=== PATIENT | female | born 1975 | race Two or more races ===

== ENCOUNTER 2016-08-30 23:33 | Emergency (ER) | payer SELFPAY ==
[~2016-08-30] VITALS: Ht 152.4 cm; Wt 62.6 kg
[~2016-08-30 23:33] MED LIST: METR500T PO
[2016-08-31 00:12] LABS: BILIRUBIN,URINE NEGATIVE (NEG); GLUCOSE,URINE NEGATIVE (NEG); NITRITE,URINE NEGATIVE (NEG); PH,URINE 7.5; PROTEIN,URINE NEGATIVE (NEG-TRACE); UROBILINOGEN,URINE 0.2 mg/dL (0.2 mg/dL)
[2016-08-31] MEDS ORDERED: IV NORMAL SALINE 1000ML BAG 1,000 ML IV SCH (00:15)
[2016-08-31 00:18] LABS: BACTERIA,URINE FEW /HPF (0-FEW); RBC,URINE OCC /HPF (0-2); SQUAMOUS EPITHELIAL CELL,UR MOD /LPF
--- NOTE | 2016-08-31 00:22 | PHYS DOC ---
Past Medical History Past Medical History: No Pertinent History Past Surgical History: Appendectomy, Cholecystectomy Alcohol Use: None Drug Use: None Adult General Chief Complaint Chief Complaint: HEADACHE HPI HPI Patient is a 41 year old female who presents with complaint of dizziness, blurry vision, and extremity numbness. Patient states that 2 days ago she had a bad headache that lasted until this morning. Patient states that after resolution of her headache she started noticing numbness and tingling in her left upper extremity and her bilateral lower extremities. Patient also states that she has had blurring of vision and decreased energy during this time. Patient is not having any pain currently. Patient states that her symptoms do worsen when she tries to get up and move. Patient denies any known health problems and is not currently on any medications. Patient denies any recent illnesses. Patient has not taken any medications to help with her symptoms. Review of Systems Review of Systems Constitutional: Fatigue, dizziness, Denies fever or chills [] Eyes: Denies change in visual acuity, redness, or eye pain [] HENT: Denies nasal congestion or sore throat [] Respiratory: Denies cough or shortness of breath [] Cardiovascular: Denies chest pain or edema [] GI: Denies abdominal pain, nausea, vomiting, bloody stools or diarrhea [] : Denies dysuria or hematuria [] Musculoskeletal: Denies back pain or joint pain [] Integument: Denies rash or skin lesions [] Neurologic: Headache currently resolved, tingling in left upper extremity and bilateral lower extremities [] Endocrine: Denies polyuria or polydipsia [] Current Medications Current Medications Current Medications Medications (Trade) Dose Ordered Sig/Priyank Start Time Stop Time Status Last Admin Dose Admin Sodium Chloride (Iv Sodium Chloride 0.9% 1000ml Bag) 1,000 ml @ 1,000 mls/hr Q1H 08/31/16 00:15 08/31/16 01:14 DC 08/31/16 00:33 1,000 MLS/HR Allergies Allergies Allergies Coded Allergies Type Severity Reaction Last Updated Verified Penicillins Allergy Intermediate 02/07/16 Yes Physical Exam Physical Exam Constitutional: Alert, afebrile, no acute distress. [] HENT: Normocephalic, atraumatic, bilateral external ears normal, oropharynx moist, no oral exudates, nose normal. [] Eyes: PERRLA, EOMI, conjunctiva normal, no discharge. [] Neck: Normal range of motion, no tenderness, supple, no stridor. [] Cardiovascular:Heart rate regular rhythm, no murmur [] Lungs & Thorax: Bilateral breath sounds clear to auscultation [] Abdomen: Bowel sounds normal, soft, no tenderness, no masses, no pulsatile masses. [] Skin: Warm, dry, no erythema, no rash. [] Back: No tenderness, no CVA tenderness. [] Extremities: No tenderness, no cyanosis, no clubbing, ROM intact, no edema. [] Neurologic: Alert and oriented X 3, normal motor function, normal sensory function, no focal deficits noted. [] Current Patient Data Vital Signs Vital Signs Date Time Temp Pulse Resp B/P Pulse Ox O2 Delivery O2 Flow Rate FiO2 08/30/16 23:50 98.6 93 20 135/88 100 Room Air 98.6 Lab Values Laboratory Tests Test 08/30/16 23:03 08/31/16 00:01 08/31/16 00:22 POC Urine HCG, Qualitative Hcg negative (Negative) Urine Collection Type Unknown Urine Color Yellow Urine Clarity Clear Urine pH 7.5 Urine Specific [place] 1.010 Urine Protein Negativemg/dL (NEG-TRACE) Urine Glucose (UA) Negativemg/dL (NEG) Urine Ketones (Stick) Negativemg/dL (NEG) Urine Blood Negative (NEG) Urine Nitrite Negative (NEG) Urine Bilirubin Negative (NEG) Urine Urobilinogen Dipstick 0.2mg/dL (0.2 mg/dL) Urine Leukocyte Esterase Small (NEG) Urine RBC Occ/HPF (0-2) Urine WBC 5-10/HPF (0-4) Urine Squamous Epithelial Cells Mod/LPF Urine Bacteria Few/HPF (0-FEW) Urine Mucus Slight/LPF White Blood Count 6.7x10^3/uL (4.0-11.0) Red Blood Count 4.94x10^6/uL (3.50-5.40) Hemoglobin 13.3g/dL (12.0-15.5) Hematocrit 39.8% (36.0-47.0) Mean Corpuscular Volume 81fL (79-100) Mean Corpuscular Hemoglobin 27pg (25-35) Mean Corpuscular Hemoglobin Concent 33g/dL (31-37) Red Cell Distribution Width 14.9% (11.5-14.5) H Platelet Count 276x10^3/uL (140-400) Neutrophils (%) (Auto) 56% (31-73) Lymphocytes (%) (Auto) 36% (24-48) Monocytes (%) (Auto) 6% (0-9) Eosinophils (%) (Auto) 2% (0-3) Basophils (%) (Auto) 1% (0-3) Neutrophils # (Auto) 3.7x10^3uL (1.8-7.7) Lymphocytes # (Auto) 2.4x10^3/uL (1.0-4.8) Monocytes # (Auto) 0.4x10^3/uL (0.0-1.1) Eosinophils # (Auto) 0.1x10^3/uL (0.0-0.7) Basophils # (Auto) 0.0x10^3/uL (0.0-0.2) Sodium Level 139mmol/L (136-145) Potassium Level 3.4mmol/L (3.5-5.1) L Chloride Level 102mmol/L (98-107) Carbon Dioxide Level 27mmol/L (21-32) Anion Gap 10 (6-14) Blood Urea Nitrogen 14mg/dL (7-20) Creatinine 0.6mg/dL (0.6-1.0) Estimated GFR (Cockcroft-Gault) 111.3 BUN/Creatinine Ratio 23 (6-20) H Glucose Level 101mg/dL (70-99) H Calcium Level 9.0mg/dL (8.5-10.1) Magnesium Level 2.2mg/dL (1.8-2.4) Total Bilirubin 0.5mg/dL (0.2-1.0) Aspartate Amino Transferase (AST) 32U/L (15-37) Alanine Aminotransferase (ALT) 86U/L (14-59) H Alkaline Phosphatase 73U/L (46-116) Total Protein 8.0g/dL (6.4-8.2) Albumin 3.8g/dL (3.4-5.0) Albumin/Globulin Ratio 0.9 (1.0-1.7) L Laboratory Tests 08/31/16 00:22 Laboratory Tests 08/31/16 00:22 EKG EKG Interpreted by me: Heart rate 80, sinus rhythm, normal intervals, normal axis, no acute ST/T-wave abnormalities present [] Radiology/Procedures Radiology/Procedures [facility] [address] [place] [address] IMAGING REPORT Signed PATIENT: DANDRE VAIL ACCOUNT: [id number] : 1975 LOCATION: ER AGE: 41 SEX: F EXAM STATUS: REG ER ORD. PHYSICIAN: RODRIGUEZ POLO MD REASON: headache x 2 days PROCEDURE: HEAD WO CONTRAST Examination: CT head without contrast. History: History of headache for 2 days. COMPARISON None available. TECHNIQUE Axial images of the head were performed without contrast. Exposure: One or more of the following dose reduction technique were utilized for this examination: 1. Automated exposure control. 2.Adjustment of MA and /or KV according to patient size. 3. Use of iterative reconstruction technique. Findings: There is no evidence of midline shift. The visualized mc-white matter differentiation is maintained. There is a 4 millimeter hyperdensity with a tiny calcification identified in the region of the left sylvian fissure identified. The mc-white matter differentiation is maintained. Visualized lateral ventricles , 3rd ventricle and 4th ventricle appropriate for age. There is no acute intracranial bleed or extra-axial fluid collection identified . basal cisterns are not effaced. The visualized paranasal sinuses, mastoid air cells are clear. IMPRESSION Tiny 4 millimeter hyperdensity identified in the left sylvian fissure region, best visualized on series 2 image #12 containing tiny punctate calcification could be secondary to stigmata of old infection, nonspecific calcification, or aneurysm or tiny cavernous hemangioma. No acute intracranial bleed identified. Electronically signed by: Brayan Juarez (Aug 31, 2016 01:08:50) DICTATED and SIGNED BY: BRAYAN JUAREZ MD DATE: 08/31/16 010 CC: RODRIGUEZ POLO MD; NO PCP ~ [] Course & Med Decision Making Course & Med Decision Making Pertinent Labs and Imaging studies reviewed. (See chart for details) The patient's neurologic exam was normal. Patient's visual acuity was reviewed and appears within normal limits. Patient shows no other significant abnormalities on the exam. I have low suspicion for stroke in this patient. The patient's symptoms are likely consistent with a typical migraine. At this time the patient will be continued on daily aspirin with referral to Dr. Allen of neurology in one to 2 weeks. Advised return emergency department for any worsening symptoms. Patient voiced understanding and in agreement with treatment plan. Dragon Disclaimer Dragon Disclaimer This electronic medical record was generated, in whole or in part, using a voice recognition dictation system. Departure Departure Impression: Primary Impression: Headache Additional Impression: Dizziness Disposition: HOME, SELF-CARE Condition: IMPROVED Referrals: NO PCP (PCP) JOHNNA ALLEN MD Patient Instructions: General Headache Without Cause Additional Instructions: Follow-up with Dr. Allen in one to 2 weeks. Be sure to continue on 81 mg baby aspirin daily. Return to the emergency department for any worsening symptoms. Scripts Aspirin (Aspir 81)81 Mg Tablet.dr1 Tab PO DAILY #30 TAB Ref 0 Prov:RODRIGUEZ POLO MD 08/31/16 Problem Qualifiers Primary Impression: Headache Headache type: unspecified Headache chronicity pattern: episodic headache Intractability: not intractable Qualified Code: R51 - Headache RODRIGUEZ POLO MD Aug 31, 2016 00:22
[2016-08-31 00:36] LABS: BASO % 1 % (0-3); EOS % 2 % (0-3); HEMATOCRIT 39.8 % (36.0-47.0); HEMOGLOBIN 13.3 g/dL (12.0-15.5); LYMPH # 2.4 x10^3/uL (1.0-4.8); LYMPH % 36 % (24-48); MEAN CORPUSCULAR HEMOGLOBIN 27 pg (25-35); MEAN CORPUSCULAR HGB CONC 33 g/dL (31-37); MEAN CORPUSCULAR VOLUME 81 fL (79-100); MONO % 6 % (0-9); NEUT % 56 % (31-73); PLATELET COUNT 276 x10^3/uL (140-400); RED BLOOD COUNT 4.94 x10^6/uL (3.50-5.40); RED CELL DISTRIBUTION WIDTH 14.9 % (11.5-14.5); WHITE BLOOD COUNT 6.7 x10^3/uL (4.0-11.0)
[2016-08-31 00:47] LABS: CREATININE 0.6 mg/dL (0.6-1.0); GFR 111.3; POTASSIUM 3.4 mmol/L (3.5-5.1)
[2016-08-31 00:52] LABS: ALBUMIN 3.8 g/dL (3.4-5.0); ALBUMIN/GLOBULIN RATIO 0.9 (1.0-1.7); MAGNESIUM 2.2 mg/dL (1.8-2.4); TOTAL BILIRUBIN 0.5 mg/dL (0.2-1.0)
--- NOTE | 2016-08-31 01:11 | RAD ---
Examination: CT head without contrast. History: History of headache for 2 days. COMPARISON None available. TECHNIQUE Axial images of the head were performed without contrast. Exposure: One or more of the following dose reduction technique were utilized for this examination: 1. Automated exposure control. 2.Adjustment of MA and /or KV according to patient size. 3. Use of iterative reconstruction technique. Findings: There is no evidence of midline shift. The visualized mc-white matter differentiation is maintained. There is a 4 millimeter hyperdensity with a tiny calcification identified in the region of the left sylvian fissure identified. The mc-white matter differentiation is maintained. Visualized lateral ventricles , 3rd ventricle and 4th ventricle appropriate for age. There is no acute intracranial bleed or extra-axial fluid collection identified . basal cisterns are not effaced. The visualized paranasal sinuses, mastoid air cells are clear. IMPRESSION Tiny 4 millimeter hyperdensity identified in the left sylvian fissure region, best visualized on series 2 image #12 containing tiny punctate calcification could be secondary to stigmata of old infection, nonspecific calcification, or aneurysm or tiny cavernous hemangioma. No acute intracranial bleed identified. Electronically signed by: Brayan Juarez (Aug 31, 2016 01:08:50)
[2016-08-31] MEDS ORDERED: ASPI-482 PO (01:24)
[2016-08-31 01:30] VITALS: BP 127/74
--- NOTE | 2016-08-31 11:28 | EKG ---
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
== END 2016-08-31 01:46 | disposition home or self-care (01) ==
LOC: ER 23:33
DX: R51 Headache (principal); R42 Dizziness and giddiness; Z88.0 Allergy status to penicillin
CPT/HCPCS: 36415; 70450; 80053; 81001; 81025; 83735; 85027; 87086; 93005; 96360; 99285; J7030

== ENCOUNTER 2019-03-04 22:49 | Emergency (ER) | payer SELFPAY ==
[~2019-03-04] VITALS: Ht 144.8 cm; Wt 62.6 kg
[~2019-03-04 22:49] MED LIST changes: +ASPI-482 PO
[2019-03-05] MEDS ORDERED: CEPH-264 PO (00:18)
[2019-03-05] MEDS ORDERED: HYDR-3164 PO (00:18)
--- NOTE | 2019-03-05 00:18 | PHYS DOC ---
Past Medical History Past Medical History: Other Additional Past Medical Histor: lump in right breast Past Surgical History: No Surgical History Alcohol Use: None Adult General Chief Complaint Chief Complaint: BREAST PROBLEM HPI HPI Patient is a 43 year old Albanian speaking female who presents with complaining of breast pain. Patient's sister is translating. Patient states she had an abnormal mammogram about 1 month ago with a lump in her primary and had ultrasound and was told she needs to have another mammogram but because of insurance problem cannot have another one until next month. Patient complaining of bilateral breast pain that getting worse in the right side gradually and rated her pain 10 over 10 and asking for checking her breasts regarding a lump in her breast was told at [facility] in [place]. Patient denies drainage of report, history of breast cancer in family, previous abnormal mammogram. Patient had 5 without breast-feeding. Review of Systems Review of Systems Constitutional: Denies fever or chills [] Eyes: Denies change in visual acuity, redness, or eye pain [] HENT: Denies nasal congestion or sore throat [] Respiratory: Denies cough or shortness of breath [] Cardiovascular: No additional information not addressed in HPI [] GI: Denies abdominal pain, nausea, vomiting, bloody stools or diarrhea [] : Denies dysuria or hematuria [] Musculoskeletal: Denies back pain or joint pain [] Integument: Denies rash or skin lesions [] Neurologic: Denies headache, focal weakness or sensory changes [] Endocrine: Denies polyuria or polydipsia [] All other systems were reviewed and found to be within normal limits, except as documented in this note. Current Medications Current Medications Current Medications Medications (Trade) Dose Ordered Sig/Priyank Start Time Stop Time Status Last Admin Dose Admin Acetaminophen/ Hydrocodone Bitart (Lortab 5/325) 1 tab 1X ONCE 03/05/19 00:30 03/05/19 00:31 Allergies Allergies Allergies Coded Allergies Type Severity Reaction Last Updated Verified Penicillins Allergy Intermediate 03/05/19 Yes Physical Exam Physical Exam Constitutional: Well developed, well nourished, mild distress, non-toxic appearance. [] HENT: Normocephalic, atraumatic. Eyes: PERRLA, EOMI, conjunctiva normal, no discharge. [] Neck: Normal range of motion, no tenderness, supple, no stridor. [] Cardiovascular:Heart rate regular rhythm, no murmur [] Lungs & Thorax: Bilateral breath sounds clear to auscultation [] Breast exam: Normal inspection, nontender flexion or change of color of the skin, no palpable mass in bilateral breasts. Tenderness of right breast, no axillary lymphadenopathy. Neurologic: Alert and oriented X 3, no focal deficits noted. [] Psychologic: Affect anxious, judgement normal, mood normal. [] Current Patient Data Vital Signs Vital Signs Date Time Temp Pulse Resp B/P (MAP) Pulse Ox O2 Delivery O2 Flow Rate FiO2 03/04/19 23:42 97.9 69 16 116/65 (82) 98 Room Air 97.9 EKG EKG [] Radiology/Procedures Radiology/Procedures [] Course & Med Decision Making Course & Med Decision Making Evaluation of patient in ER showed 43-year-old male patient had abnormal mammogram and ultrasound in another place and requesting evaluation of her breast because of the pain. Patient did not have palpated tenderness and was told is to follow-up with her outpatient appointment for evaluation. Patient treated with [place] in ER and plan to discharge home with diagnosis of mastalgi. Dragon Disclaimer Dragon Disclaimer This electronic medical record was generated, in whole or in part, using a voice recognition dictation system. Departure Departure Impression: Primary Impression: Mastalgia in female Additional Impression: Anxiety about health Disposition: 01 HOME, SELF-CARE (at 00 20) Condition: STABLE Referrals: NO PCP (PCP) Patient Instructions: Breast Cyst, Breast Tenderness, Mastitis Additional Instructions: Drink plenty of liquids Follow-up with your primary care physician in 3-5 days Return to ER if not getting better Apply warm compress on your breast Scripts Hydrocodone/Apap 5-325 (NORCO 5-325 TABLET) 1 Each Tablet 1 TAB PO PRN Q6HRS PRN for PAIN, #10 TAB 0 Refills Prov: JENNIFER PRATT MD 03/05/19 Cephalexin (KEFLEX) 500 Mg Capsule 2 CAP PO Q12HR, #28 CAP Prov: JENNIFER PRATT MD 03/05/19 Problem Qualifiers JENNIFER PRATT MD Mar 05, 2019 00:18
[2019-03-05 00:28] VITALS: BP 110/68
[2019-03-05] MEDS ORDERED: HYDROcodone/APAP 5/325MG 1 TAB TABLET PO ONE (00:30)
== END 2019-03-05 00:40 | disposition home or self-care (01) ==
LOC: MERGE 22:49 → ER 22:49
DX: N64.4 Mastodynia (principal); F41.9 Anxiety disorder, unspecified; Z88.0 Allergy status to penicillin
CPT/HCPCS: 99283

== ENCOUNTER → 2021-11-02 | Emergency (ER) | payer SELFPAY ==
[~2021-11-02] VITALS: Ht 149.9 cm; Wt 61.0 kg
[~2021-11-02] MED LIST changes: +ACETAMINOPHEN 500 MG TABLET PO ONE; +CEPH-264 PO; +HYDR-2761 PO; +HYDR-3164 PO; +HYDROcodone/APAP 5/325MG 1 TAB TABLET PO ONE; +HYDROmorphone 2 MG/ML INJ. IVP ONE; +IV NORMAL SALINE 1000ML BAG 1,000 ML IV ONE; +LEVO750T5 PO; +LIDO:MAALOX 1:1 20 ML SINGLE DOSE. SWSW ONE; +OMEP20TA63 PO; +ONDA4TAB12 PO; +ONDANSETRON PF 4 MG/2 ML VIAL. IVP ONE
--- NOTE | 2021-11-02 06:12 | PHYS DOC ---
Past Medical History Past Medical History: Other Additional Past Medical Histor: lump in right breast Past Surgical History: No Surgical History Smoking Status: Never Smoker Alcohol Use: None Drug Use: None Adult General Chief Complaint Chief Complaint: ABDOMINAL PAIN HPI HPI Patient is a 46 year old female presenting to the emergency department for evaluation of epigastric abdominal pain is been going on for approximately 4 days. She says that the pain is constant and it is a sharp stabbing pain that does not radiate. She says that the pain is constant and nothing makes it better or worse. She has a fever here and she has had dysuria and nausea but no vomiting diarrhea constipation vaginal bleeding vaginal discharge. She says she has had an appendectomy and cholecystectomy. She denies headache neck stiffness cough rash. She is in no acute distress. Review of Systems Review of Systems Constitutional: + fever. No chills [] Eyes: Denies change in visual acuity, redness, or eye pain [] HENT: Denies nasal congestion or sore throat [] Respiratory: Denies cough or shortness of breath [] Cardiovascular: No additional information not addressed in HPI [] GI: + abdominal pain, nausea. No vomiting, bloody stools or diarrhea [] : Denies dysuria or hematuria [] Musculoskeletal: Denies back pain or joint pain [] Integument: Denies rash or skin lesions [] Neurologic: Denies headache, focal weakness or sensory changes [] All other systems were reviewed and found to be within normal limits, except as documented in this note. Current Medications Current Medications Current Medications Medications (Trade) Dose Ordered Sig/[facility] Start Time Stop Time Status Last Admin Dose Admin Acetaminophen (Tylenol) 1,000 mg 1X ONCE 11/02/21 06:15 11/02/21 06:16 DC 11/02/21 06:34 1,000 MG Hydromorphone HCl (Dilaudid) 1 mg 1X ONCE 11/02/21 07:45 11/02/21 07:46 DC 11/02/21 07:55 1 MG Morphine Sulfate (Morphine Sulfate) 4 mg 1X PRN 11/02/21 06:15 11/02/21 06:49 4 MG Multi-Ingredient Mouthwash/Gargle (Gi Cocktail) 20 ml 1X ONCE 11/02/21 06:15 11/02/21 06:16 DC 11/02/21 06:35 20 ML Ondansetron HCl (Zofran) 4 mg 1X ONCE 11/02/21 06:15 11/02/21 06:16 DC 11/02/21 06:49 4 MG Sodium Chloride 1,000 ml @ 1,000 mls/hr 1X ONCE 11/02/21 06:15 11/02/21 07:14 DC 11/02/21 06:15 1,000 MLS/HR Allergies Allergies Allergies Coded Allergies Type Severity Reaction Last Updated Verified Penicillins Allergy Intermediate 11/02/21 Yes Physical Exam Physical Exam Constitutional: Well developed, well nourished, no acute distress, non-toxic appearance. [] HENT: Normocephalic, atraumatic, bilateral external ears normal, oropharynx moist, no oral exudates, nose normal. [] Eyes: PERRLA, EOMI, conjunctiva normal, no discharge. [] Neck: Normal range of motion, no tenderness, supple, no stridor. [] Cardiovascular:Heart rate regular rhythm, no murmur [] Lungs & Thorax: Bilateral breath sounds clear to auscultation [] Abdomen: Bowel sounds normal, soft, + epigastric ttp. No rebound or guarding. Skin: Warm, dry, no erythema, no rash. [] Back: No tenderness, no CVA tenderness. [] Extremities: No tenderness, no cyanosis, no clubbing, ROM intact, no edema. [] Neurologic: Alert and oriented X 3, normal motor function, normal sensory function, no focal deficits noted. [] Current Patient Data Vital Signs Vital Signs Date Time Temp Pulse Resp B/P (MAP) Pulse Ox O2 Delivery O2 Flow Rate FiO2 11/02/21 09:37 84 16 112/59 (76) 98 Room Air 11/02/21 06:05 101.1 101.1 Lab Values Laboratory Tests Test 11/02/21 06:22 11/02/21 06:46 11/02/21 07:40 11/02/21 09:30 Influenza Type A Antigen Negative (NEGATIVE) Influenza Type B Antigen Negative (NEGATIVE) SARS-CoV-2 Antigen (Rapid) Negative (NEGATIVE) White Blood Count 6.8 x10^3/uL (4.0-11.0) Red Blood Count 4.96 x10^6/uL (3.50-5.40) Hemoglobin 13.5 g/dL (12.0-15.5) Hematocrit 40.0 % (36.0-47.0) Mean Corpuscular Volume 81 fL (79-100) Mean Corpuscular Hemoglobin 27 pg (25-35) Mean Corpuscular Hemoglobin Concent 34 g/dL (31-37) Red Cell Distribution Width 14.5 % (11.5-14.5) Platelet Count 313 x10^3/uL (140-400) Neutrophils (%) (Auto) 80 % (31-73) H Lymphocytes (%) (Auto) 11 % (24-48) L Monocytes (%) (Auto) 7 % (0-9) Eosinophils (%) (Auto) 1 % (0-3) Basophils (%) (Auto) 1 % (0-3) Neutrophils # (Auto) 5.4 x10^3/uL (1.8-7.7) Lymphocytes # (Auto) 0.8 x10^3/uL (1.0-4.8) L Monocytes # (Auto) 0.5 x10^3/uL (0.0-1.1) Eosinophils # (Auto) 0.0 x10^3/uL (0.0-0.7) Basophils # (Auto) 0.0 x10^3/uL (0.0-0.2) Sodium Level 139 mmol/L (136-145) Potassium Level 3.8 mmol/L (3.5-5.1) Chloride Level 107 mmol/L (98-107) Carbon Dioxide Level 25 mmol/L (21-32) Anion Gap 7 (6-14) Blood Urea Nitrogen 8 mg/dL (7-20) Creatinine 0.6 mg/dL (0.6-1.0) Estimated GFR (Cockcroft-Gault) 108.6 BUN/Creatinine Ratio 13 (6-20) Glucose Level 110 mg/dL (70-99) H Calcium Level 8.1 mg/dL (8.5-10.1) L Total Bilirubin 0.9 mg/dL (0.2-1.0) Aspartate Amino Transferase (AST) 38 U/L (15-37) H Alanine Aminotransferase (ALT) 47 U/L (14-59) Alkaline Phosphatase 69 U/L (46-116) Troponin I High Sensitivity < 4 ng/L (4-50) L Total Protein 7.1 g/dL (6.4-8.2) Albumin 3.4 g/dL (3.4-5.0) Albumin/Globulin Ratio 0.9 (1.0-1.7) L Lipase 65 U/L (73-393) L Urine Collection Type Unknown Urine Color (Auto) Yellow Urine Turbidity Hazy Urine pH (Auto) 7.5 (<5.0-8.0) Urine Specific [place] 1.021 (1.000-1.030) Urine Protein (Auto) Negative mg/dL (Negative) Urine Glucose (Auto)(UA) Negative mg/dL (Negative) Urine Ketones (Auto) Negative mg/dL (Negative) Urine Blood (Auto) Large (Negative) Urine Nitrite Positive (Negative) Urine Bilirubin (Auto) Negative (Negative) Urine Urobilinogen (Auto) Normal mg/dL (Normal) Urine Leukocyte Esterase (Auto) Small (Negative) Urine RBC 20-40 /HPF (0-2) Urine WBC 11-20 /HPF (0-4) Urine Squamous Epithelial Cells Mod /LPF Urine Bacteria Many /HPF (0-FEW) Urine Mucus Marked /LPF Laboratory Tests 11/02/21 06:46 Laboratory Tests 11/02/21 07:40 EKG EKG Sinus rhythm at 94 bpm with normal axis no deviation no ST elevation or depression normal T waves. Radiology/Procedures Radiology/Procedures IMPRESSION: Patchy nodular consolidative airspace disease identified at the posterior medial right lung base suggestive of a pneumonitis of infectious/inflammatory etiology. 3 month follow-up chest CT is recommended to ensure resolution. No bowel obstruction or inflammation. No findings of obstructive uropathy. Course & Med Decision Making Course & Med Decision Making Patient has epigastric abdominal pain in addition to a fever and nausea. I will check labs urinalysis CT treat her symptoms and reassess. Labs and imaging reviewed with patient and her son. All incidental findings on labs and imaging and the need for follow-up with primary care provider were discussed as well. I told her that it appears that she may have a urinary tract infection in addition to a pneumonia that could be causing her fever. Based off her location and description of her pain I told her I suspect she also has a gastritis causing her abdominal pain. There is no acute surgical pathology detected at this time on her work-up. Patient's pain has improved significantly and her repeat abdominal exam is benign with no focal tenderness rebound or guarding and she was drinking fluids by mouth with no difficulty. Patient says she feels much better and would like to go home. Given patient appears well with normal vital signs benign physical exam work-up and is requesting discharge I will discharge her in stable condition told her to follow with primary care provider within 3 to 4 days for recheck and come back to emergency department sooner with worsening pain fevers vomiting or other general concerns patient and son aware and agreeable with plan and verbalized understanding of the above instructions. Of note I did discuss possible side effects of Levaquin and recommended against high impact activity. There is no signs of prolonged QTC on her EKG. Dragon Disclaimer Dragon Disclaimer This electronic medical record was generated, in whole or in part, using a voice recognition dictation system. Departure Departure Impression: Primary Impression: Abdominal pain Additional Impressions: Pneumonia UTI (urinary tract infection) Disposition: HOME / SELF CARE / HOMELESS Condition: STABLE Referrals: NO PCP (PCP) Patient Instructions: Pneumonia, Adult Additional Instructions: Avoid NSAIDS such as ibuprofen and naproxen. Take in a soft non-irritating diet. Drink plenty of fluids. Follow with primary care provider within 3-4 days. Come back to the ED with worsening pain, soa, or other general concerns. Thank you! Scripts Omeprazole Magnesium (PRILOSEC OTC) 20 Mg Tablet. 1 TAB PO DAILY for 30 Days, #30 TAB 0 Refills Prov: BRANDAN ROBERT DO 11/02/21 Hydrocodone Bit/Acetaminophen (HYDROCODONE-APAP 5-325 ) 1 Tab Tablet 1 TAB PO PRN Q6HRS PRN for PAIN, #14 TAB 0 Refills Prov: BRANDAN ROBERT DO 11/02/21 Ondansetron (ONDANSETRON ODT) 4 Mg Tab.rapdis 1 TAB PO PRN Q6-8HRS, #10 TAB Prov: BRANDAN ROBERT DO 11/02/21 Levofloxacin (LEVOFLOXACIN) 750 Mg Tablet 1 TAB PO DAILY, #7 TAB Prov: BRANDAN ROBERT DO 11/02/21 Problem Qualifiers Primary Impression: Abdominal pain Abdominal location: epigastric Qualified Codes: R10.13 - Epigastric pain Additional Impressions: Pneumonia Pneumonia type: due to unspecified organism Laterality: right Lung location: middle lobe of lung Qualified Codes: J18.9 - Pneumonia, unspecified organism BRANDAN ROBERT DO November 02, 2021 06:12
[2021-11-02] MEDS: MORPHINE SULFATE 4 MG/ML INJ. IV PRN ×2 (06:49→10:55)
[2021-11-02 06:57] LABS: INFLUENZA A PATIENT NEGATIVE (NEGATIVE); INFLUENZA B PATIENT NEGATIVE (NEGATIVE)
[2021-11-02 07:00] LABS: BASO % 1 % (0-3); EOS % 1 % (0-3); HEMOGLOBIN 13.5 g/dL (12.0-15.5); LYMPH # 0.8 x10^3/uL (1.0-4.8); LYMPH % 11 % (24-48); MEAN CORPUSCULAR HEMOGLOBIN 27 pg (25-35); MEAN CORPUSCULAR HGB CONC 34 g/dL (31-37); MEAN CORPUSCULAR VOLUME 81 fL (79-100); MONO # 0.5 x10^3/uL (0.0-1.1); MONO % 7 % (0-9); NEUT # 5.4 x10^3/uL (1.8-7.7); NEUT % 80 % (31-73); PLATELET COUNT 313 x10^3/uL (140-400); RED BLOOD COUNT 4.96 x10^6/uL (3.50-5.40); RED CELL DISTRIBUTION WIDTH 14.5 % (11.5-14.5); WHITE BLOOD COUNT 6.8 x10^3/uL (4.0-11.0)
--- NOTE | 2021-11-02 07:52 | RAD ---
PQRS Compliance Statement: One or more of the following individualized dose reduction techniques were utilized for this examinat ion: 1. Automated exposure control 2. Adjustment of the mA and/or kV according to patient size 3. Use of iterative reconstruction technique CT abdomen/pelvis without contrast 11/02/2021 7:11 AM INDICATION: Epigastric abdominal pain for 4 days COMPARISON: None available TECHNIQUE: Multiple axial CT images of the abdomen and pelvis were obtained without intravenous contr ast. Coronal and sagittal reformats are provided. FINDINGS: Patchy nodular airspace disease identified at the posterior medial right lung base suggestive of a pn eumonitis of infectious/inflammatory etiology. Heart size is within normal limits. Evaluation of shamika d abdominal viscera is limited by lack of intravenous contrast. Coarse calcification identified withi n a peripheral inferior right hepatic cyst measuring 1.5 cm. Spleen, adrenal glands and pancreas are normal in appearance. Gallbladder surgically absent. The abdominal aorta is normal in course and mary nayely. There are no pathologically enlarged lymph nodes in the abdomen and pelvis. There is no abdomina l free fluid. There is no free intraperitoneal air. The kidneys are relatively symmetric in appearanc e. There is no suspicious renal mass within the limitations of a noncontrast examination. There is no hydronephrosis. There are no calculi within the kidneys, ureters or urinary bladder. Small and large bowel are normal in caliber. There is no evidence for bowel obstruction. There are no pericolonic in flammatory changes. Appendix is absent. No suspicious adnexal mass. Metallic density identified along the fundus of the uterus, nonspecific. Small fat-containing left inguinal hernia. Urinary bladder is within normal limits in degree of distention. No suspicious osseous abnormality. IMPRESSION: Patchy nodular consolidative airspace disease identified at the posterior medial right lung base sugg estive of a pneumonitis of infectious/inflammatory etiology. 3 month follow-up chest CT is recommende d to ensure resolution. No bowel obstruction or inflammation. No findings of obstructive uropathy. Electronically signed by: Ana Adkins MD (11/02/2021 7:50 AM) [id number]
[2021-11-02 08:09] LABS: CALCIUM 8.1 mg/dL (8.5-10.1); CREATININE 0.6 mg/dL (0.6-1.0); GFR 108.6; POTASSIUM 3.8 mmol/L (3.5-5.1)
[2021-11-02 08:15] LABS: ALBUMIN 3.4 g/dL (3.4-5.0); ALBUMIN/GLOBULIN RATIO 0.9 (1.0-1.7); TOTAL BILIRUBIN 0.9 mg/dL (0.2-1.0); TOTAL PROTEIN 7.1 g/dL (6.4-8.2)
[2021-11-02 09:37] VITALS: BP 112/59
[2021-11-02 10:20] LABS: BACTERIA,URINE MANY /HPF (0-FEW); RBC,URINE 20-40 /HPF (0-2)
--- NOTE | 2021-11-05 08:32 | EKG ---
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
== END | disposition home or self-care (01) ==
LOC: ER 05:52
DX: J18.9 Pneumonia, unspecified organism (principal); N39.0 Urinary tract infection, site not specified; Z20.822 Contact with and (suspected) exposure to COVID-19; Z88.0 Allergy status to penicillin
CPT/HCPCS: 36415; 74176; 80053; 81001; 83690; 84484; 85025; 87077; 87086; 87186; 87428; 93005; 96361; 96374; 96375; 99285; J1170; J2270; J2405; J7030